=== PATIENT | male | born 1950 | race African-American/Black ===

== ENCOUNTER 2019-03-25 11:10 | Emergency (ER) | payer MEDICARE, MEDICAID ==
[~2019-03-25] VITALS: Ht 170.2 cm; Wt 61.2 kg
[~2019-03-25 11:10] MED LIST: BACTRIM DS TAB1 EAC1 ORAL; KEFLEX500 MG ORAL; NKM
[2019-03-25 12:25] VITALS: BP 138/92
--- NOTE | 2019-03-25 12:26 | NUR ---
ED Nurse Note:pt. came with ears impacked with wax
--- NOTE | 2019-03-25 13:14 | Emergency Room Report ---
History of Present Illness General Chief Complaint: Earache Source: Patient Present Illness HPI 68-year-old male presents to the emergency department complaining of bilateral ears being clogged with earwax x4 days. Patient reports decrease in hearing. Patient denies pain, fevers, chills, or ear discharge. He denies external ear tenderness. Patient reports that he did attempt to remove the earwax using a Q- tip however he was unsuccessful. Patient denies suspicion of foreign body in his ear. No other aggravating or relieving factors at this time. Denies rashes , dizziness or completely loss of hearing. Allergies: Coded Allergies: No Known Allergies (Unverified , 12/26/13) Patient History Past Medical History: see triage record Past Surgical History: none Pertinent Family History: none Immunizations: UTD Reviewed Nursing Documentation: PMH: Agreed; PSxH: Agreed Nursing Documentation-PMH Past Medical History: No Stated History Review of Systems All Other Systems: negative except mentioned in HPI Physical Exam Vital Signs Date Time Temp Pulse Resp B/P (MAP) Pulse Ox O2 Delivery O2 Flow Rate FiO2 03/25/19 11:12 97.9 96 16 138/92 (107) 97 Room Air Sp02 EP Interpretation: reviewed, normal General Appearance: no apparent distress, alert, GCS 15, non-toxic Head: normocephalic, atraumatic Eyes: bilateral eye normal inspection, bilateral eye PERRL ENT: hearing grossly normal, normal pharynx, normal voice, other - mpacted cerumen in the ear canals bilaterally. NO erythema, no external ear tenderness. Neck: full range of motion Respiratory: lungs clear, normal breath sounds, speaking full sentences Cardiovascular #1: regular rate, rhythm Musculoskeletal: gait/station normal, non-tender Neurologic: alert, motor strength/tone normal, oriented x3, sensory intact, responsive, speech normal Psychiatric: judgement/insight normal Skin: no rash Lymphatic: no adenopathy Medical Decision Making PA Attestation Dr. Clark Is my supervising Physician whom patient management has been discussed with. Diagnostic Impression: Primary Impression: Excessive cerumen in both ear canals ER Course 68-year-old male presents to the emergency department complaining of bilateral ears being clogged with earwax x4 days. Patient reports decrease in hearing. Patient denies pain, fevers, chills, or ear discharge. He denies external ear tenderness. Patient reports that he did attempt to remove the earwax using a Q- tip however he was unsuccessful. Patient denies suspicion of foreign body in his ear. No other aggravating or relieving factors at this time. Denies rashes , dizziness or completely loss of hearing. Ddx considered but are not limited to OM, OE, mastoiditis, TM perforation, FB Vital signs: are WNL, pt. is afebrile H&PE are most consistent with Impacted cerumen of the ear canals bilaterally ORDERS: none required at this time, the diagnosis is clinical -OTOSCOPY: Impacted cerumen in the ear canals bilaterally ED INTERVENTIONS: None required at this time. -I do not identify an emergent condition at this time. With current presentation , pt. is stable for close outpatient follow up and conservative treatment. D/ w pt. to return promptly to ED with worsening or new symptoms.- Pt. verbalizes' understanding and agreement with proposed treatment plan.proposed treatment plan. DISCHARGE: At this time pt. is stable for d/c to home. With rx for Debrox. Will provide printed patient care instructions, and any necessary prescriptions. Care plan and follow up instructions have been discussed with the patient prior to discharge. Last Vital Signs Date Time Temp Pulse Resp B/P (MAP) Pulse Ox O2 Delivery O2 Flow Rate FiO2 03/25/19 12:25 97.9 16 138/92 97 Room Air 03/25/19 11:12 96 Disposition: HOME, SELF-CARE Condition: Stable Scripts Carbamide Peroxide (DEBROX) 15 Ml Drops 10 DROP BOTH EARS TWICE A DAY for 4 Days, ML 0 Refills Prov: Angela Sierra 03/25/19 Patient Instructions: Cerumen Impaction Additional Instructions: Take medications as directed. Follow up with a Primary Care Provider in 3-5 days, even if your symptoms have resolved. Return sooner to ED if new symptoms occur, or current symptoms become worse. - Please note that this Emergency Department Report was dictated using [email or web address] technology software, occasionally this can lead to erroneous entry secondary to interpretation by the dictation equipment. Angela Sierra Mar 25, 2019 13:14
[2019-03-25] MEDS ORDERED: DEBROX15 M1 BOTH EARS (13:15)
--- NOTE | 2019-03-25 13:30 | NUR ---
ER DISCHARGE NOTE: Patient is cleared to be discharged per ERMD, pt is aox4, on room air, with stable vital signs. pt was given dc and prescription instructions, pt was able to verbalize understanding, pt is able to ambulate with steady gait. pt took all belongings.
[2019-03-25 13:44] VITALS: BP 138/92
== END 2019-03-25 13:30 | disposition home or self-care (01) ==
LOC: EMR 12:20
DX: H61.23 Impacted cerumen, bilateral (principal)
CPT/HCPCS: 99282